=== PATIENT | male | born 1990 | race Caucasian/White ===

== ENCOUNTER 2018-05-22 20:30 | Emergency (ER) | payer OTHER ==
--- NOTE | 2018-05-22 22:14 | EDM.PDOC ---
ED HPI GENERAL MEDICAL PROBLEM - General Chief Complaint: ENT Problem Stated Complaint: COUGHING BLOOD SORE THROAT Time Seen by Provider: 05/22/18 21:10 Source of Information: Reports: Patient History Limitations: Reports: No Limitations - History of Present Illness INITIAL COMMENTS - FREE TEXT/NARRATIVE: 27-year-old male with a cough for the last 4 days, sore throat, general malaise , and tonight he coughed so hard a small amount of pink sputum was produced. This scared him so he came in. No persistent fevers or chills, no significant shortness of breath, he is a nonsmoker. Onset: Gradual Severity: Moderate (Over the past 4 days) Associated Symptoms: Reports: Cough, Fever/Chills. Denies: Shortness of Breath Throat Pain Score (Numeric/FACES): 7 - Related Data Allergies Allergy/AdvReac Type Severity Reaction Status Date / Time latex Allergy Swelling Verified 05/22/18 21:08 Home Meds: Home Meds NK [No Known Home Meds] 05/22/18 [History] Past Medical History Respiratory History: Reports: Asthma Musculoskeletal History: Reports: Fracture Neurological History: Reports: Other (See Below) Other Neuro History: dyslexia Social & Family History - Tobacco Use Smoking Status *Q: Never Smoker - Caffeine Use Caffeine Use: Reports: Coffee, Soda - Recreational Drug Use Recreational Drug Use: No ED ROS GENERAL - Review of Systems Review Of Systems: See Below Constitutional: Reports: Fever, Chills HEENT: Reports: Throat Pain. Denies: Ear Pain Respiratory: Reports: Cough, Sputum. Denies: Shortness of Breath Cardiovascular: Denies: Chest Pain GI/Abdominal: Denies: Nausea, Vomiting Skin: Reports: No Symptoms Neurological: Reports: Dizziness. Denies: Headache ED EXAM, GENERAL - Physical Exam Exam: See Below Exam Limited By: No Limitations General Appearance: Alert, No Apparent Distress Eye Exam: Bilateral Eye: Normal Inspection Ears: Normal TMs Throat/Mouth: Other (Pharyngeal and tonsillar erythema present) Head: Atraumatic Neck: No: Lymphadenopathy (R), Lymphadenopathy (L) Respiratory/Chest: No Respiratory Distress, Wheezing (Patient has a few scattered expiratory wheezes with coughing) Cardiovascular: Regular Rate, Rhythm Neurological: Alert, Oriented Psychiatric: Normal Affect, Normal Mood Skin Exam: Warm, Dry Course - Vital Signs Last Recorded V/S: Last Vital Signs Temp 97 F 05/22/18 21:04 Pulse 109 H 05/22/18 21:04 Resp 16 05/22/18 21:04 BP 134/91 H 05/22/18 21:04 Pulse Ox 93 L 05/22/18 21:04 - Orders/Labs/Meds Orders: Active Orders 24 hr Category Date Time Status Chest 2V [CR] Routine Exams 05/22/18 21:19 Taken CULTURE STREP A CONFIRMATION [RM] Routine Lab 05/22/18 21:21 Results STREP SCRN A RAPID W CULT CONF [RM] Routine Lab 05/22/18 21:21 Ordered - Re-Assessments/Exams Free Text/Narrative Re-Assessment/Exam: 05/22/18 22:13 A rapid strep was obtained which was negative, two-view chest x-ray was also normal. A note was given for the patient to be off work for a few days but this is viral bronchitis in all likelihood and will run its course. He can return if worsening. Departure - Departure Time of Disposition: 22:20 Disposition: Home, Self-Care 01 Condition: Good Clinical Impression: Acute bronchitis, viral - Discharge Information Instructions: Acute Bronchitis, Adult, [id number] Referrals: PCP,None [Primary Care Provider] - Forms: ED Department Discharge Care Plan Goals: Rest, fluids, cough suppression and ibuprofen should help. Consider rechecking in 2-3 days if not improving satisfactorily. - My Orders Last 24 Hours: My Active Orders 05/22/18 21:19 Chest 2V [CR] Routine 05/22/18 21:21 CULTURE STREP A CONFIRMATION [RM] Routine STREP SCRN A RAPID W CULT CONF [RM] Routine - Assessment/Plan Last 24 Hours: My Active Orders 05/22/18 21:19 Chest 2V [CR] Routine 05/22/18 21:21 CULTURE STREP A CONFIRMATION [RM] Routine STREP SCRN A RAPID W CULT CONF [RM] Routine
--- NOTE | 2018-05-23 08:44 | CR ---
CHEST: 2 view CLINICAL HISTORY:Dyspnea COMPARISON:None FINDINGS: Heart size and pulmonary vascularity are normal. Lung gomes are clear. IMPRESSION: No acute cardiopulmonary process
== END 2018-05-22 22:20 | disposition home or self-care (01) ==
LOC: JP.ED 20:30
DX: J20.8 Acute bronchitis due to other specified organisms (principal); Z91.040 Latex allergy status
CPT/HCPCS: 71046; 71046-26; 87081; 87430; 99284

== ENCOUNTER 2020-04-09 00:57 | Emergency (ER) | payer MEDICAID ==
--- NOTE | 2020-04-09 01:44 | EDM.PDOC ---
ED HPI GENERAL MEDICAL PROBLEM - General Chief Complaint: ENT Problem Stated Complaint: RT SIDE TOOTH PAIN Time Seen by Provider: 04/09/20 01:30 Source of Information: Reports: Patient, Old Records, RN History Limitations: Reports: No Limitations - History of Present Illness INITIAL COMMENTS - FREE TEXT/NARRATIVE: 29 yo male here with dental pain. The affected tooth broke off a long time ago and only tonight has begun to cause pain. No fever, but does have some R sided facial swelling. Does have a dentist to call on Saturday. Took ibuprofen before arrival with slight relief. Onset: Gradual Onset Date: 04/08/20 Duration: Hour(s):, Getting Worse Location: Reports: Face Quality: Reports: Ache Severity: Moderate Improves with: Reports: Medication Worsens with: Reports: Other (time) Context: Reports: Other (See HPI) Associated Symptoms: Reports: Other (R facial swelling). Denies: Fever/Chills Treatments SENIOR TECHNICAL SPECIALIST: Reports: NSAIDS Tooth/Teeth Pain Score (Numeric/FACES): 10 - Related Data Allergies Allergy/AdvReac Type Severity Reaction Status Date / Time latex Allergy Swelling Verified 04/09/20 01:06 Home Meds: Home Meds Albuterol [Proventil HFA] 200 puff INH Q2H PRN 04/09/20 [History] Zolpidem Tartrate [Ambien] 10 mg PO BEDTIME 04/09/20 [History] Past Medical History HEENT History: Reports: Other (See Below) Other HEENT History: bronchitis and ear infection in left ear 2 weeks ago Respiratory History: Reports: Asthma Musculoskeletal History: Reports: Arthritis, Fracture, Other (See Below) Other Musculoskeletal History: possible ACL rupture Neurological History: Reports: Other (See Below) Other Neuro History: dyslexia Psychiatric History: Reports: Anxiety, Depression Endocrine/Metabolic History: Reports: Obesity/BMI 30+ - Past Surgical History HEENT Surgical History: Reports: None Social & Family History - Family History Family Medical History: Noncontributory - Tobacco Use Smoking Status *Q: Never Smoker Second Hand Smoke Exposure: No - Caffeine Use Caffeine Use: Reports: Coffee, Soda - Recreational Drug Use Recreational Drug Use: No ED ROS ENT - Review of Systems Review Of Systems: See Below Constitutional: Reports: No Symptoms HEENT: Reports: Dental Pain Respiratory: Reports: No Symptoms Musculoskeletal: Reports: No Symptoms Skin: Reports: No Symptoms Neurological: Reports: No Symptoms ED EXAM, ENT - Physical Exam Exam: See Below Exam Limited By: No Limitations General Appearance: Alert, WD/WN, No Apparent Distress, Obese Eye Exam: Bilateral Eye: Normal Inspection, PERRL Ears: Normal External Exam, Normal Canal, Hearing Grossly Normal Nose: Normal Inspection, No Blood Mouth/Throat: Normal Lips, Normal Oropharynx, Dental Tenderness (R 2nd from back maxillary molar is partially broken off and very tender.). No: Muffled Voice, Pharyngeal Erythema, Tonsillar Erythema, Tonsillar Exudates, Tonsillar Swelling, Uvular Deviation, Uvular Edema Head: Atraumatic, Normocephalic Neck: Normal Inspection. No: Lymphadenopathy (R), Lymphadenopathy (L) Course - Vital Signs Last Recorded V/S: Last Vital Signs Temp 37.1 C 04/09/20 01:24 Pulse 74 04/09/20 01:24 Resp 16 04/09/20 01:24 BP 134/93 H 04/09/20 01:24 Pulse Ox 95 04/09/20 01:24 Departure - Departure Time of Disposition: 01:50 Disposition: Home, Self-Care 01 Condition: Fair Clinical Impression: Dental infection, Pain, dental - Discharge Information *PRESCRIPTION DRUG MONITORING PROGRAM REVIEWED*: No *COPY OF PRESCRIPTION DRUG MONITORING REPORT IN PATIENT EDOUARD: No Instructions: Dental Abscess, [id number] Referrals: Laura Zimmerman MD [Primary Care Provider] - Additional Instructions: Take penicillin as directed. Take ibuprofen 600-800 mg every 6 hrs with food for pain relief. Add either acetaminophen OR [place] for added relief. See your dentist odilia. Avoid hot, cold, or hard things on that side of your mouth. Return for fever. See your provider as needed. Sepsis Event Note (ED) - Evaluation Sepsis Screening Result: No Definite Risk - Focused Exam Vital Signs: Vital Signs Temp Pulse Resp BP Pulse Ox 04/09/20 01:24 37.1 C 74 16 134/93 H 95
== END 2020-04-09 02:02 | disposition home or self-care (01) ==
LOC: JP.ED 00:57
DX: K04.7 Periapical abscess without sinus (principal); F41.9 Anxiety disorder, unspecified; F32.9 Major depressive disorder, single episode, unspecified; E66.9 Obesity, unspecified; J45.909 Unspecified asthma, uncomplicated; Z68.41 Body mass index [BMI] 40.0-44.9, adult; Z91.040 Latex allergy status; Z79.899 Other long term (current) drug therapy
CPT/HCPCS: 99282

== ENCOUNTER 2020-05-30 15:38 | Emergency (ER) | payer MEDICAID ==
--- NOTE | 2020-05-30 16:09 | EDM.PDOC ---
ED HPI GENERAL MEDICAL PROBLEM - General Chief Complaint: Fever Stated Complaint: FEVER POST SURGERY Time Seen by Provider: 05/30/20 16:05 Source of Information: Reports: Patient History Limitations: Reports: No Limitations - History of Present Illness INITIAL COMMENTS - FREE TEXT/NARRATIVE: pt had a acl repair on sat and h had a temp of 99.6 today. He did have mild nausea. He did take hs asa as he was instructed to prevent clots prior to cominmg in. His temp was 97 on arrival. He did have some sweating. He has not had increased pain. Onset: Today Duration: Hour(s): Location: Reports: Generalized Associated Symptoms: Reports: Other (pt had a fever but no sore throat, cough or other symptoms. ) - Related Data Allergies Allergy/AdvReac Type Severity Reaction Status Date / Time latex Allergy Swelling Verified 05/30/20 15:47 Home Meds: Home Meds Albuterol [Proventil HFA] 200 puff INH Q2H PRN 04/09/20 [History] Zolpidem Tartrate [Ambien] 10 mg PO BEDTIME 04/09/20 [History] Past Medical History HEENT History: Reports: Other (See Below) Other HEENT History: bronchitis and ear infection in left ear 2 weeks ago Respiratory History: Reports: Asthma Musculoskeletal History: Reports: Arthritis, Fracture, Other (See Below) Other Musculoskeletal History: possible ACL rupture Neurological History: Reports: Other (See Below) Other Neuro History: dyslexia Psychiatric History: Reports: Anxiety, Depression Endocrine/Metabolic History: Reports: Obesity/BMI 30+ - Past Surgical History HEENT Surgical History: Reports: None Social & Family History - Family History Family Medical History: Noncontributory - Tobacco Use Smoking Status *Q: Never Smoker - Caffeine Use Caffeine Use: Reports: Coffee, Soda ED ROS GENERAL - Review of Systems Review Of Systems: See Below Constitutional: Reports: Fever, Other (pt had surgery on sat, ) HEENT: Reports: No Symptoms Respiratory: Reports: No Symptoms Cardiovascular: Reports: No Symptoms Endocrine: Reports: No Symptoms GI/Abdominal: Reports: No Symptoms, Nausea : Reports: No Symptoms Musculoskeletal: Reports: No Symptoms Skin: Reports: No Symptoms ED EXAM, SEPSIS - Physical Exam Exam: See Below Text/Narrative:: pt arrived with a history of a low grade temp of 99.6. He had surgery on his knee to repair a acl on sat. Exam Limited By: No Limitations General Appearance: Alert, No Apparent Distress, Anxious Ears: Normal TMs Nose: Normal Inspection Throat/Mouth: Normal Inspection Head: Atraumatic Neck: Normal Inspection Respiratory/Chest: No Respiratory Distress Cardiovascular: Regular Rate, Rhythm GI/Abdominal Exam: Soft, Non-Tender (Male) Exam: Deferred Rectal (Males) Exam: Deferred Back: Normal Inspection Extremities: Other ( The left kne where he had his surgery was not excessively swollen. The wounds look good. He does not have increased pain. ) Neurological: Alert, Oriented, Normal Cognition Course - Vital Signs Last Recorded V/S: Last Vital Signs Temp 36.3 C 05/30/20 15:54 Pulse 121 H 05/30/20 15:54 Resp 14 05/30/20 15:54 BP 135/77 05/30/20 15:54 Pulse Ox 98 05/30/20 15:54 - Orders/Labs/Meds Orders: Active Orders 24 hr Category Date Time Status Chest 1V Frontal [CR] Stat Exams 05/30/20 16:20 Taken Labs: Laboratory Tests 05/30/20 05/30/20 Range/Units 16:16 16:35 WBC 17.8 H (4.5-11.0) K/uL RBC 5.57 (4.30-5.90) M/uL Hgb 15.8 H (12.0-15.0) g/dL Hct 45.6 (40.0-54.0) % MCV 82 (80-98) fL MCH 28 (27-31) pg MCHC 35 (32-36) % Plt Count 596 H (150-400) K/uL Neut % (Auto) 75 H (36-66) % Lymph % (Auto) 16 L (24-44) % Benzie % (Auto) 8 H (2-6) % Eos % (Auto) 1 L (2-4) % Baso % (Auto) 0 (0-1) % Urine Color Yellow (YELLOW) Urine Appearance Clear (CLEAR) Urine pH 5.5 (5.0-8.0) Ur Specific [place] >= 1.030 (1.008-1.030) Urine Protein 30 H (NEGATIVE) mg/dL Urine Glucose (UA) Negative (NEGATIVE) mg/dL Urine Ketones Negative (NEGATIVE) mg/dL Urine Occult Blood Small H (NEGATIVE) Urine Nitrite Negative (NEGATIVE) Urine Bilirubin Negative (NEGATIVE) Urine Urobilinogen 0.2 (0.2-1.0) EU/dL Ur Leukocyte Esterase Negative (NEGATIVE) Urine RBC 0-5 (0-5) Urine WBC Not seen (0-5) Ur Epithelial Cells Not seen Urine Bacteria Not seen Urine Mucus Few - Re-Assessments/Exams Free Text/Narrative Re-Assessment/Exam: 05/30/20 16:55 chest xray looks clear, wbc is elevated. urine is clear. pt was advised that the wound looks good but there could be a small area of infection starting. Departure - Departure Time of Disposition: 16:56 Disposition: Home, Self-Care 01 Condition: Fair Clinical Impression: Fever, History of repair of ACL - Discharge Information Referrals: Laura Zimmerman MD [Primary Care Provider] - Forms: ED Department Discharge Care Plan Goals: push fluids, urine is concentrated. rtc if he begins to spike high temps, keflex 500mg qid, let his surgeon know if redness develops Sepsis Event Note (ED) - Evaluation Sepsis Screening Result: No Definite Risk - Focused Exam Vital Signs: Vital Signs Temp Pulse Resp BP Pulse Ox 05/30/20 15:54 36.3 C 121 H 14 135/77 98 - My Orders Last 24 Hours: My Active Orders 05/30/20 16:20 Chest 1V Frontal [CR] Stat - Assessment/Plan Last 24 Hours: My Active Orders 05/30/20 16:20 Chest 1V Frontal [CR] Stat
--- NOTE | 2020-05-31 09:22 | CR ---
CHEST: PA CLINICAL HISTORY:Postop fever COMPARISON:05/22/2018 FINDINGS: The heart size, pulmonary vascularity and hilar structures are normal. No infiltrate effusion or pneumothorax is seen. IMPRESSION: No acute cardiopulmonary process.
== END 2020-05-30 17:07 | disposition home or self-care (01) ==
LOC: JP.ED 15:38
DX: R50.9 Fever, unspecified (principal); D72.829 Elevated white blood cell count, unspecified; J45.909 Unspecified asthma, uncomplicated; E66.9 Obesity, unspecified; Z68.41 Body mass index [BMI] 40.0-44.9, adult; Z91.040 Latex allergy status; Z98.890 Other specified postprocedural states
CPT/HCPCS: 36415; 71045; 71045-26; 81001; 85025; 99283

== ENCOUNTER 2021-11-06 19:07 | Emergency (ER) | payer MEDICAID | END 2021-11-06 20:16 | disposition home or self-care (01) | LOC: JP.ED 19:07 | DX: G57.62 Lesion of plantar nerve, left lower limb (principal); J45.909 Unspecified asthma, uncomplicated; E66.9 Obesity, unspecified; Z91.040 Latex allergy status; Z68.42 Body mass index [BMI] 45.0-49.9, adult | CPT/HCPCS: 99283 ==